=== PATIENT | female | born 1960 ===

== ENCOUNTER 2023-11-14 17:26 | Emergency (ER) | payer SELFPAY ==
[2023-11-14 17:28] VITALS: BP 131/78; PULSE 67; RESP 16; TEMP 36.3; O2SAT 100; BMI 37.1
--- NOTE | 2023-11-14 19:47 | ED.RN ---
Addendum entered by Lea Garcia 11/14/23 19:50: Pt lwbs @ 1930 Original Note: Pt states she would like to leave and try to come back tomorrow when it's not so busy. This RN apologized for the wait. Pt feels that she is well enough to leave at this time.
== END 2023-11-14 19:30 | disposition left against medical advice (07) ==
LOC: ED 20:00
DX: Z53.21 Procedure and treatment not carried out due to patient leaving prior to being seen by health care provider (principal)